=== PATIENT | male | born 1980 | race American Indian/Alaskan Native ===

== ENCOUNTER 2017-03-15 17:23 | Emergency (ER) | payer MEDICAID ==
[2017-03-15 17:31] VITALS: BMI 22.3
[2017-03-15] MEDS ORDERED: Albuterol-Ipratrop 3 mg / 0.5 (3 ml) UD ONE (18:06)
[2017-03-15] MEDS ORDERED: Albuterol-Ipratrop 3 mg / 0.5 (3 ml) UD IH STA (18:07)
--- NOTE | 2017-03-15 18:10 | C.PDOC ---
History Of Present Illness Gadiel is a 37 y/o male with a PMHx of asthma who presents to the ED complaining of shortness of breath, with associated non-productive cough, diaphoresis, and back pain. He began coughing early yesterday afternoon upon waking up (patient works overnight shifts). Used rescue inhaler and Singulair without relief. Usually his asthma exacerbations are caused by exercise or allergies. Reports hes been having two attacks per week, where he wakes up coughing. Denies fever and chills. He has prior hospitalizations for asthma but no intubation. He has taken Prednisone in the past but stopped it due to adverse reactions. PMD: Nba Mejia Time Seen by Provider: 03/15/17 17:46 Chief Complaint (Nursing): Shortness Of Breath History Per: Patient History/Exam Limitations: no limitations Onset/Duration Of Symptoms: Days (x 2) Current Symptoms Are (Timing): Still Present Past Medical History Reviewed: Historical Data, Nursing Documentation, Vital Signs Vital Signs: Last Vital Signs Temp 97.6 F 03/15/17 17:31 Pulse 68 03/15/17 17:31 Resp 16 03/15/17 18:00 BP 104/69 03/15/17 17:31 Pulse Ox 97 03/15/17 20:13 - Medical History PMH: Asthma Surgical History: No Surg Hx Family History: States: Unknown Family Hx - Social History Hx Tobacco Use: Yes (light smoker) Hx Alcohol Use: No Hx Substance Use: Yes (marijuana) - Immunization History Hx Tetanus Toxoid Vaccination: No Hx Influenza Vaccination: No Hx Pneumococcal Vaccination: No Review Of Systems Except As Marked, All Systems Reviewed And Found Negative. Constitutional: Negative for: Fever, Chills Cardiovascular: Positive for: Other (Diaphoresis) Respiratory: Positive for: Cough (Non-productive), Shortness of Breath. Negative for: Sputum Musculoskeletal: Positive for: Back Pain Physical Exam - Physical Exam Appears: Well, Non-toxic, No Acute Distress Skin: Normal Color, Warm, Dry Head: Atraumatic, Normacephalic Eye(s): bilateral: Normal Inspection, PERRL, EOMI Oral Mucosa: Moist Neck: Normal, Normal ROM, Supple Chest: Symmetrical Cardiovascular: Rhythm Regular, No Friction Rub, No Murmur, No Other (Gallop) Respiratory: Normal Breath Sounds (Clear to auscultation), Wheezing (with cough on forced expiration) Gastrointestinal/Abdominal: Normal Exam, Soft, No Tenderness Back: Normal Inspection, No Vertebral Tenderness Extremity: Normal ROM, No Pedal Edema, No Deformity Neurological/Psych: Oriented x3, Normal Speech, Normal Motor, Normal Sensation Gait: Steady ED Course And Treatment - Laboratory Results Result Diagrams: 03/15/17 18:18 03/15/17 18:18 Lab Interpretation: No Acute Changes ECG: Interpreted By Me ECG Rhythm: Sinus Rhythm ECG Interpretation: No Acute Changes O2 Sat by Pulse Oximetry: 97 (RA) Pulse Ox Interpretation: Normal - Radiology CXR: Interpreted by Me, Viewed By Me CXR Interpretation: Yes: Other (Hyperinflation) Reevaluation Time: 20:20 Reassessment Condition: Improved (after nebulized albuterol and atrovent) Medical Decision Making Medical Decision Making: Time: 18:07 --Labs ordered --CXR 2 views --EKG --Started on Duoneb INH treatment --Peak Flow pre/post treatment Disposition - Disposition Referrals: Nba Mejia MD [Staff Provider] - Disposition: HOME/ ROUTINE Disposition Time: 20:20 Condition: IMPROVED Additional Instructions: Use the Advair disk 1 puff twice a day. Be sure to rinse your mouth after each inhalation. Instructions: Asthma (ED) Forms: [facility] (Belgian) - Clinical Impression Clinical Impression: Exacerbation of asthma - Scribe Statement The provider has reviewed the documentation as recorded by the Scribe Alyssa Smith All medical record entries made by the Scribe were at my direction and personally dictated by me. I have reviewed the chart and agree that the record accurately reflects my personal performance of the history, physical exam, medical decision making, and the department course for this patient. I have also personally directed, reviewed, and agree with the discharge instructions and disposition.
[2017-03-15 18:25] LABS: BASO # 0.1 K/uL (0.0-0.2); BASO % 1.3 % (0.0-2.0); EOS # 0.3 K/uL (0.0-0.7); EOS % 6.3 % (0.0-4.0); HEMATOCRIT 41.6 % (35.0-51.0); LYMPH # 2.1 K/uL (1.0-4.3); LYMPH % 43.8 % (20.0-40.0); MEAN CELL VOLUME 87.4 fL (80.0-94.0); MEAN CORPUSCULAR HEMOGLOBIN 29.5 pg (27.0-31.0); MEAN CORPUSCULAR HGB CONC 33.8 g/dL (33.0-37.0); MEAN PLATELET VOLUME 8.1 fL (7.2-11.7); MONO # 0.8 K/uL (0.0-0.8); MONO % 17.5 % (0.0-10.0); NRBC % 0.1 % (0.0-2.0); RED CELL DISTRIBUTION WIDTH 13.5 % (11.5-14.5); WHITE BLOOD COUNT 4.7 K/uL (4.8-10.8)
[2017-03-15 18:35] LABS: ALB/GLOB RATIO 1.2 (1.0-2.1); ALKALINE PHOSPHATASE 51 U/L (38-126); ALT/SGPT 31 U/L (21-72); AST/SGOT 34 U/L (17-59); BILIRUBIN,TOTAL 0.5 mg/dL (0.2-1.3); BLOOD UREA NITROGEN 19 mg/dL (9-20); CALCIUM 8.8 mg/dl (8.6-10.4); CARBON DIOXIDE 27 mmol/L (22-30); CHLORIDE 103 mmol/L (98-107); GFR AFRICAN-AMERICAN > 60; GLUCOSE,RANDOM 73 mg/dL (75-110); POTASSIUM 3.8 mmol/L (3.6-5.2); SODIUM 137 mmol/L (132-148); TOTAL PROTEIN 6.9 g/dL (6.3-8.3)
[2017-03-15] MEDS ORDERED: Fluticasone-Salmeterol 250-50mcg Diskus INH STA (20:22)
[2017-03-15 21:07] VITALS: BP 106/71; PULSE 60; RESP 20; TEMP 97.9; O2SAT 98
--- NOTE | 2017-03-16 08:40 | RAD ---
HISTORY: Shortness of breath COMPARISON: No prior. TECHNIQUE: Chest PA and lateral FINDINGS: LUNGS: The lungs are hyperinflated and there is peribronchial cuffing with streaky opacities in both lungs. No focal consolidation. PLEURA: No significant pleural effusion identified. No pneumothorax apparent. CARDIOVASCULAR: Normal. OSSEOUS STRUCTURES: No significant abnormalities. VISUALIZED UPPER ABDOMEN: Normal. OTHER FINDINGS: None. IMPRESSION: Findings are most compatible with reactive small airway disease/ viral bronchitis. No lobar pneumonia.
--- NOTE | 2017-03-16 12:34 | CARD ---
APPROVED REPORT EKG Measurement Heart [id number] <Conclusion> Normal sinus rhythm Normal ECG voltage criteria for left ventricle hypertrophy
== END 2017-03-15 21:10 | disposition home or self-care (01) ==
LOC: C.ER 17:23
DX: J45.901 Unspecified asthma with (acute) exacerbation (principal)

== ENCOUNTER 2018-02-25 23:37 | Emergency (ER) | payer SELFPAY ==
[2018-02-25 23:37] VITALS: BMI 22.3
[2018-02-25 23:43] VITALS: BP 140/80; PULSE 80; RESP 16; TEMP 98; O2SAT 99
--- NOTE | 2018-02-26 01:08 | C.PDOC ---
History Of Present Illness <Gricelda Monreal - Last Filed: 02/26/18 04:40> <Katerina Cisse - Last Filed: 03/01/18 02:57> Pt c/o pain and swelling to left 5th finger after a door slammed on his hand 2 days ago. pt denies weakness or numbness (Gricelda Monreal) History Per: Patient History/Exam Limitations: no limitations Current Symptoms Are (Timing): Still Present Quality: "Pain" Severity: Mild Exacerbating Factor(s): Movement <Gricelda Monreal - Last Filed: 02/26/18 04:40> <Katerina Cisse - Last Filed: 03/01/18 02:57> Time Seen by Provider: 02/25/18 23:50 Chief Complaint (Nursing): Finger,Hand,&Wrist Past Medical History - Medical History PMH: Asthma Family History: States: Unknown Family Hx - Social History Hx Tobacco Use: Yes (light smoker) Hx Alcohol Use: No Hx Substance Use: Yes (marijuana) - Immunization History Hx Tetanus Toxoid Vaccination: No Hx Influenza Vaccination: No Hx Pneumococcal Vaccination: No <Gricelda Monreal - Last Filed: 02/26/18 04:40> Vital Signs: Last Vital Signs Temp 98.0 F 02/25/18 23:41 Pulse 80 02/25/18 23:41 Resp 16 02/25/18 23:41 BP 140/80 02/25/18 23:41 Pulse Ox 99 02/26/18 05:08 Review Of Systems Constitutional: Negative for: Fever Musculoskeletal: Positive for: Hand Pain (left 5th finger) Neurological: Negative for: Weakness, Numbness <Gricelda Monreal - Last Filed: 02/26/18 04:40> Eyes: Negative for: Pain, Vision Change ENT: Negative for: Ear Pain, Ear Discharge Cardiovascular: Negative for: Chest Pain, Palpitations, Orthopnea Respiratory: Negative for: Cough, Shortness of Breath, Hemoptysis Gastrointestinal: Negative for: Nausea, Vomiting Genitourinary: Negative for: Dysuria, Frequency, Incontinence Musculoskeletal: Negative for: Neck Pain Psych: Negative for: Anxiety, Depression <Katerina Cisse N - Last Filed: 03/01/18 02:57> Physical Exam - Physical Exam Appears: Well Eye(s): bilateral: Normal Inspection Extremity: No Normal ROM (lt digit decreased due to pain), Tenderness (from PIP to base of left 5th MCP), Capillary Refill (< 2sec), No Deformity, Swelling ( minimal left 5th finger ), Other (remainder of left hand normal) Pulses: Left Radial: Normal Neurological/Psych: Oriented x3, Normal Motor, Normal Sensation <Gricelda Monreal - Last Filed: 02/26/18 04:40> - Physical Exam Skin: Normal Color Head: Atraumatic Eye(s): bilateral: Normal Inspection, PERRL, EOMI Ear(s): Bilateral: Normal Nose: Normal Tongue: Normal Appearing Lips: Normal Appearing Teeth: Normal Dentition Gingiva: Normal Appearing Throat: Normal Chest: Symmetrical Cardiovascular: Rhythm Regular Respiratory: Normal Breath Sounds Gastrointestinal/Abdominal: Normal Exam Back: Normal Inspection Male Genital: Normal Inspection <Katerina Cisse N - Last Filed: 03/01/18 02:57> ED Course And Treatment O2 Sat by Pulse Oximetry: 99 - Other Rad Lt Hand Interpretation: Transverse fx of left 5th MCP with no dislocation Progress Note: Pt placed Ulnar gutter splint by CP and checked by me then placed in a sling. Pt remained neurovascular intact. Pt will follow up with HAND and return precautions were discussed <Gricelda Monreal - Last Filed: 02/26/18 04:40> Disposition Counseled Patient/Family Regarding: Diagnosis - Disposition Disposition Time: 01:05 <Gricelda Monreal - Last Filed: 02/26/18 04:40> <Katerina Cisse N - Last Filed: 03/01/18 02:57> - Disposition Referrals: Nba Mejia MD [Staff Provider] - Arnol Ulloa MD [Staff Provider] - Disposition: HOME/ ROUTINE Condition: STABLE Additional Instructions: Please follow up with Hand doctor Take tylenol or advil for pain Return to ER if severe pain, moderate swelling , numbness or worse Instructions: Boxer's Fracture (DC) Forms: [facility] (Czech), Work Excuse - Clinical Impression Clinical Impression: Closed fracture of 5th metacarpal
--- NOTE | 2018-02-26 11:50 | RAD ---
Left hand 5th digit three views History: Fracture. Comparison: None available. Findings: Transverse oblique fracture deformity through the midshaft of the 5th proximal phalanx. Diffuse osteopenia. Impression: Transverse oblique fracture deformity through the midshaft of the 5th proximal phalanx.
== END 2018-02-26 01:15 | disposition home or self-care (01) ==
LOC: C.ER 23:37
DX: S62.397A Other fracture of fifth metacarpal bone, left hand, initial encounter for closed fracture (principal); W23.0XXA Caught, crushed, jammed, or pinched between moving objects, initial encounter; Y92.9 Unspecified place or not applicable